=== PATIENT | female | born 1965 | race African-American/Black ===

== ENCOUNTER → 2017-01-18 | Day surgery (SDC) | payer OTHER ==
[~2017-01-18] MED LIST: FURO20 PO; KCL10C; LACTATED RINGER'S 1000 ML INJ 1,000 ML ONE; LORTA10 PO; PROPOFOL 500 MG/50 ML BTL IV ONE; SULF-154 PO; VITATAB25 PO
--- NOTE | 2017-01-18 10:26 | GIPROC ---
[facility] [address] [facility], [id number] COLONOSCOPY PROCEDURE REPORT EXAM DATE: 01/18/2017 PATIENT NAME: Elaina Alonso MR #: [id number] BIRTHDATE: 1965 ENDOSCOPIST: Ramy Crawley MD ORDER #: [id number] LAPEL PADDER: Aurelia De Jesus RN STATUS: outpatient INDICATIONS: The patient is a 51 yr old female here for a colonoscopy due to average risk patient for colon cancer PROCEDURE PERFORMED: Colonoscopy with polypectomy MEDICATIONS: None and Per Anesthesia. PREP QUALITY: fair ESTIMATED BLOOD LOSS: None CONSENT: The patient understands the risks and benefits of the procedure and understands that these risks include, but are not limited to: sedation, allergic reaction, infection, perforation and/or bleeding. Alternative means of evaluation and treatment include, among others: physical exam, x-rays, and/or surgical intervention. The patient elects to proceed with this endoscopic procedure. medical equipment was checked for proper function. Hand hygiene and appropriate measures for infection prevention was taken. After the risks, benefits and alternatives of the procedure were thoroughly explained, Informed consent was verified, confirmed and timeout was successfully executed by the treatment team. A digital exam revealed no abnormalities of the rectum The EC-[id number] ([id number] endoscope was introduced through the anus and advanced to the cecum, which was identified by both the appendix and ileocecal valve. The instrument was then slowly withdrawn as the colon was fully examined. COLON FINDINGS: Two medium sized smooth sessile polyps were found in the ascending colon and descending colon. A polypectomy was performed with a cold snare. The resection was complete and the polyp tissue was completely retrieved. Mild diverticulosis was noted in the descending colon and sigmoid colon. The colon mucosa was otherwise normal. Retroflexed views revealed no abnormalities The scope was then completely withdrawn from the patient and the procedure terminated. PROCEDURE WITHDRAWAL TIME:19.6minutes ADVERSE EVENTS: There were no complications. IMPRESSIONS: 1. Two medium sized sessile polyps were found in the ascending colon and descending colon; polypectomy was performed with a cold snare 2. Mild diverticulosis was noted in the descending colon and sigmoid colon 3. The colon mucosa was otherwise normal 4. Retroflexed views revealed no abnormalities 5. Revealed no abnormalities of the rectum RECOMMENDATIONS: 1. Await biopsy results. Biopsy results will not be ready for 7-10 days. If you don't hear from us in two weeks, call our office for results. 2. High fiber diet. Avoid nuts, seeds, and popcorn. Chew your food well. 3. Follow-up: GI Clinic PRN 4. Yearly hemoccult RECALL: Return 3 years Colonoscopy Ramy Crawley MD eSigned: Ramy Crawley MD 01/18/2017 10:26 AM cc: Sara Banegas M.D and Kin Patterson [facility] PATIENT NAME: Elaina Alonso MR#: [id number]
== END | disposition home or self-care (01) ==
LOC: ESDC 07:55
PROVIDERS: ATTEND Internal Medicine Gastroenterology
DX: Z12.11 Encounter for screening for malignant neoplasm of colon (principal); D12.2 Benign neoplasm of ascending colon; D12.4 Benign neoplasm of descending colon; K57.90 Diverticulosis of intestine, part unspecified, without perforation or abscess without bleeding
CPT/HCPCS: 00810; 45385; 88305; J7120